=== PATIENT | male | born 1995 | race Caucasian/White ===

== ENCOUNTER 2021-10-01 05:07 | Emergency (ER) | payer MEDICAID ==
[~2021-10-01] VITALS: Ht 188 cm; Wt 79.5 kg
[~2021-10-01 05:07] MED LIST: DIPH-423 PO; FLUT16SP2; NO HOME MEDS
[2021-10-01 05:48] LABS: BASOPHILS % (AUTO) 0.2 % (0-1); EOSINOPHILS # (AUTO) 0.1 X10'3 (0-0.9); EOSINOPHILS % (AUTO) 1.1 % (0-6); HEMATOCRIT 46.2 % (42.0-52.0); HEMOGLOBIN 15.7 g/dl (14.0-17.9); LYMPHOCYTES # (AUTO) 1.9 X10'3 (1.1-4.8); LYMPHOCYTES % (AUTO) 21.8 % (21-51); MEAN CORPUSCULAR HEMOGLOBIN 29.7 PG (27.0-31.0); MEAN CORPUSCULAR VOLUME 87.3 FL (78-98); MONOCYTES # (AUTO) 0.7 X10'3 (0-0.9); MONOCYTES % (AUTO) 7.7 % (2-12); NEUTROPHILS # (AUTO) 5.9 X10'3 (1.8-7.7); NEUTROPHILS % (AUTO) 69.2 % (42-75); PLATELET COUNT 243 X10'3 (140-440); RED BLOOD COUNT 5.29 X10'6 (4.70-6.10); RED CELL DISTRIBUTION WIDTH 12.7 % (11.5-14.5); WHITE BLOOD COUNT 8.5 X10'3 (4.5-11.0)
[2021-10-01] MEDS ORDERED: NALO4SPR BOTHNARES (05:54)
[2021-10-01 06:00] LABS: ALANINE AMINOTRANSFERASE 71 U/L (12-78); ALBUMIN 3.7 G/DL (3.4-5.0); ALBUMIN/GLOBULIN RATIO 0.9 (1.1-1.5); ALKALINE PHOSPHATASE 85 IU/L (46-116); ANION GAP 11 (8-16); ASPARTATE AMINO TRANSFERASE 73 U/L (10-37); BILIRUBIN,TOTAL 1.1 MG/DL (0.1-1.0); BLOOD UREA NITROGEN 9 MG/DL (7-18); BUN/CREATININE RATIO 8.9 (5.4-32.0); CHLORIDE 99 MMOL/L (99-107); CREATININE 1.01 MG/DL (0.60-1.10); GLUCOSE 160 MG/DL (70-104); POTASSIUM 3.8 MMOL/L (3.5-5.1); SODIUM 137 MMOL/L (135-145); TOTAL CARBON DIOXIDE 27.3 MMOL/L (24-32); eGFR > 90 ML/MIN
[2021-10-01 06:07] LABS: MAGNESIUM 1.8 MG/DL (1.5-2.4)
--- NOTE | 2021-10-01 10:32 | NUR ---
Pt ambulating without difficulty and with steady gait.
[2021-10-01 11:20] VITALS: BP 125/102
== END 2021-10-01 11:24 | disposition home or self-care (01) ==
LOC: ER 05:07
DX: T40.411A Poisoning by fentanyl or fentanyl analogs, accidental (unintentional), initial encounter (principal); R41.82 Altered mental status, unspecified; Y92.89 Other specified places as the place of occurrence of the external cause; F15.10 Other stimulant abuse, uncomplicated; F19.10 Other psychoactive substance abuse, uncomplicated; Z79.899 Other long term (current) drug therapy
CPT/HCPCS: 36415; 71045; 80053; 83735; 83880; 84484; 85025; 93005; 99285

== ENCOUNTER 2021-10-15 16:34 | Emergency (ER) | payer MEDICAID ==
[~2021-10-15] VITALS: Ht 185.4 cm; Wt 79.5 kg
[~2021-10-15 16:34] MED LIST changes: +NALO4SPR BOTHNARES
[2021-10-15 16:53] VITALS: BP 139/87
[2021-10-15] MEDS ORDERED: PRED20TA PO (18:09)
[2021-10-15] MEDS ORDERED: ALBU6.7H9 INH (18:09)
[2021-10-15] MEDS ORDERED: SULF1TAB49 PO (18:09)
== END 2021-10-15 18:14 | disposition home or self-care (01) ==
LOC: ER 16:34
DX: R59.1 Generalized enlarged lymph nodes (principal); J45.909 Unspecified asthma, uncomplicated; F15.10 Other stimulant abuse, uncomplicated; F19.10 Other psychoactive substance abuse, uncomplicated; Z79.899 Other long term (current) drug therapy
CPT/HCPCS: 99283

== ENCOUNTER 2022-03-26 18:19 | Emergency (ER) | payer MEDICAID ==
[~2022-03-26] VITALS: Ht 185.4 cm; Wt 170.0 kg
[~2022-03-26 18:19] MED LIST changes: +ALBU6.7H14 INH
[2022-03-26 18:57] VITALS: BP 136/82
[2022-03-26 20:41] LABS: BASOPHILS % (AUTO) 0.4 % (0-1); EOSINOPHILS # (AUTO) 0.1 X10'3 (0-0.9); HEMATOCRIT 43.8 % (42.0-52.0); HEMOGLOBIN 15.1 g/dl (14.0-17.9); LYMPHOCYTES # (AUTO) 2.3 X10'3 (1.1-4.8); LYMPHOCYTES % (AUTO) 38.6 % (21-51); MEAN CORPUSCULAR HEMOGLOBIN 29.6 PG (27.0-31.0); MEAN CORPUSCULAR HGB CONC 34.4 g/dL (33.0-36.5); MEAN PLATELET VOLUME 8.1 FL (7.4-10.4); MONOCYTES # (AUTO) 0.4 X10'3 (0-0.9); MONOCYTES % (AUTO) 6.1 % (2-12); NEUTROPHILS # (AUTO) 3.2 X10'3 (1.8-7.7); NEUTROPHILS % (AUTO) 53.9 % (42-75); PLATELET COUNT 236 X10'3 (140-440); RED CELL DISTRIBUTION WIDTH 12.7 % (11.5-14.5)
[2022-03-26 21:09] LABS: ALANINE AMINOTRANSFERASE 23 U/L (12-78); ALBUMIN 3.9 G/DL (3.4-5.0); ALBUMIN/GLOBULIN RATIO 0.8 (1.1-1.5); ALKALINE PHOSPHATASE 80 IU/L (46-116); ANION GAP 6 (8-16); ASPARTATE AMINO TRANSFERASE 18 U/L (10-37); BILIRUBIN,TOTAL 0.3 MG/DL (0.1-1.0); BLOOD UREA NITROGEN 11 MG/DL (7-18); BUN/CREATININE RATIO 14.7 (5.4-32.0); CALCIUM 9.3 MG/DL (8.5-10.1); CHLORIDE 100 MMOL/L (99-107); CREATININE 0.75 MG/DL (0.60-1.10); GLUCOSE 69 MG/DL (70-104); MAGNESIUM 1.9 MG/DL (1.5-2.4); POTASSIUM 3.8 MMOL/L (3.5-5.1); SODIUM 138 MMOL/L (135-145); TOTAL CARBON DIOXIDE 32.1 MMOL/L (24-32); TOTAL PROTEIN 8.7 G/DL (6.4-8.2); eGFR > 90 ML/MIN
== END 2022-03-27 03:17 | disposition left against medical advice (07) ==
LOC: ER 18:21
DX: R60.0 Localized edema (principal); F19.10 Other psychoactive substance abuse, uncomplicated; M25.562 Pain in left knee; J45.909 Unspecified asthma, uncomplicated; F17.200 Nicotine dependence, unspecified, uncomplicated; F15.90 Other stimulant use, unspecified, uncomplicated; F11.90 Opioid use, unspecified, uncomplicated; Z79.899 Other long term (current) drug therapy
CPT/HCPCS: 36415; 71045; 80053; 83605; 83735; 84145; 85025; 87040; 99284

== ENCOUNTER → 2022-05-17 | Emergency (ER) | payer MEDICAID ==
[~2022-05-17] VITALS: Ht 185.4 cm; Wt 79.5 kg
[~2022-05-17] MED LIST changes: +ALBU8HFA PO
[2022-05-17 06:39] VITALS: BP 125/78
== END | disposition left against medical advice (07) ==
LOC: ER 06:09
DX: M54.9 Dorsalgia, unspecified (principal); Z53.21 Procedure and treatment not carried out due to patient leaving prior to being seen by health care provider

== ENCOUNTER 2022-05-20 09:47 | Emergency (ER) | payer MEDICAID ==
[~2022-05-20] VITALS: Ht 185.4 cm; Wt 79.5 kg
[~2022-05-20 09:47] MED LIST changes: -ALBU8HFA PO
[2022-05-20 10:52] VITALS: BP 119/73
[2022-05-20] MEDS ORDERED: ALBU8HFA PO (12:24)
== END 2022-05-20 12:49 | disposition home or self-care (01) ==
LOC: ER 09:48
DX: R05.9 Cough, unspecified (principal); J45.909 Unspecified asthma, uncomplicated; F15.10 Other stimulant abuse, uncomplicated
CPT/HCPCS: 99283

== ENCOUNTER 2022-07-18 20:56 | Emergency (ER) | payer MEDICAID ==
[~2022-07-18] VITALS: Ht 188 cm; Wt 79.5 kg
[2022-07-18 21:31] VITALS: BP 125/77
== END 2022-07-19 01:24 | disposition left against medical advice (07) ==
LOC: ER 20:57
DX: R22.43 Localized swelling, mass and lump, lower limb, bilateral (principal); L98.9 Disorder of the skin and subcutaneous tissue, unspecified; Z53.21 Procedure and treatment not carried out due to patient leaving prior to being seen by health care provider

== ENCOUNTER 2024-01-10 15:48 | Emergency (ER) | payer MEDICAID ==
[~2024-01-10] VITALS: Ht 188 cm; Wt 86.8 kg
[2024-01-10] MEDS ORDERED: BUSP15TA7 PO (17:20)
[2024-01-10] MEDS ORDERED: OLAN20TA3 PO (17:20)
[2024-01-10 17:58] VITALS: BP 127/77; PULSE 98; RESP 14; TEMP 98; O2SAT 98
== END 2024-01-10 18:00 | disposition home or self-care (01) ==
LOC: ER 15:48
DX: F41.9 Anxiety disorder, unspecified (principal); J45.909 Unspecified asthma, uncomplicated; F15.90 Other stimulant use, unspecified, uncomplicated; Z79.899 Other long term (current) drug therapy
CPT/HCPCS: 99281; 99283

== ENCOUNTER 2024-01-30 13:05 | Emergency (ER) | payer MEDICAID ==
[~2024-01-30] VITALS: Ht 188 cm; Wt 84.5 kg
[~2024-01-30 13:05] MED LIST changes: +BUSP15TA7 PO; +OLAN20TA3 PO
[2024-01-30] MEDS ORDERED: LORazepam 2 mg/ml vial IV PRN (14:25)
[2024-01-30] MEDS: normal saline 1000ml 1,000 ML IV ONE (14:59)
[2024-01-30] MEDS: thiamine 100mg/ml 2ml inj. IV ONE (15:06)
[2024-01-30 15:27] LABS: MAGNESIUM 2.1 MG/DL (1.5-2.4)
[2024-01-30 15:45] LABS: ETHANOL < 10 MG/DL (<10)
[2024-01-30 18:02] LABS: INR 1.1 INR
[2024-01-30 18:04] LABS: ALANINE AMINOTRANSFERASE 33 U/L (12-78); ALBUMIN 3.9 G/DL (3.4-5.0); ALBUMIN/GLOBULIN RATIO 1.1 (1.1-1.5); ALKALINE PHOSPHATASE 58 IU/L (46-116); AMYLASE 17 U/L (25-115); ANION GAP 9 (8-16); ASPARTATE AMINO TRANSFERASE 23 U/L (10-37); BILIRUBIN,TOTAL 0.7 MG/DL (0.1-1.0); BLOOD UREA NITROGEN 14 MG/DL (7-18); BUN/CREATININE RATIO 17.9 (10.0-20.0); CALCIUM 9.3 MG/DL (8.5-10.1); CHLORIDE 105 MMOL/L (99-107); CREATININE 0.78 MG/DL (0.60-1.10); GLUCOSE 117 MG/DL (70-104); LIPASE 19 U/L (16-77); PHOSPHORUS 3.5 MG/DL (2.3-4.5); POTASSIUM 3.9 MMOL/L (3.5-5.1); SODIUM 141 MMOL/L (135-145); TOTAL CARBON DIOXIDE 27.1 MMOL/L (24-32); TOTAL PROTEIN 7.5 G/DL (6.4-8.2); eCRCL 167 ML/MIN; eGFR > 90 ML/MIN
[2024-01-30 18:06] LABS: BASOPHILS % (AUTO) 0.1 % (0-1); EOSINOPHILS % (AUTO) 0.4 % (0-6); HEMATOCRIT 41.5 % (42.0-52.0); LYMPHOCYTES # (AUTO) 2.1 X10'3 (1.1-4.8); MEAN CORPUSCULAR HEMOGLOBIN 29.5 PG (27.0-31.0); MEAN CORPUSCULAR HGB CONC 33.7 g/dL (33.0-36.5); MEAN CORPUSCULAR VOLUME 87.5 FL (78-98); MONOCYTES # (AUTO) 0.5 X10'3 (0-0.9); NEUTROPHILS # (AUTO) 4.5 X10'3 (1.8-7.7); NEUTROPHILS % (AUTO) 62.5 % (42-75); PLATELET COUNT 232 X10'3 (140-440); RED BLOOD COUNT 4.74 X10'6 (4.70-6.10); RED CELL DISTRIBUTION WIDTH 13.7 % (11.5-14.5); WHITE BLOOD COUNT 7.1 X10'3 (4.5-11.0)
[2024-01-30 18:08] LABS: PROTHROMBIN TIME 11.4 SECONDS (9.0-12.0)
[2024-01-30] MEDS ORDERED: METHADONE HCL 10MG/1 ML 1mL ORAL SYRINGE PO STA (19:42)
[2024-01-30] MEDS: methadone 10mg tablet PO ONE (20:05)
[2024-01-30 20:09] VITALS: BP 118/84; PULSE 87; RESP 20; TEMP 98.7; O2SAT 98
== END 2024-01-30 20:14 | disposition home or self-care (01) ==
LOC: ER 13:05
DX: F19.10 Other psychoactive substance abuse, uncomplicated (principal); F15.90 Other stimulant use, unspecified, uncomplicated; J45.909 Unspecified asthma, uncomplicated; R79.1 Abnormal coagulation profile; Z79.899 Other long term (current) drug therapy
CPT/HCPCS: 36415; 80053; 80320; 82150; 83690; 83735; 84100; 85025; 85610; 96361; 96374; 99285; J3411; J7030

== ENCOUNTER 2024-02-01 11:56 | Emergency (ER) | payer MEDICAID | END 2024-02-01 12:10 | disposition left against medical advice (07) | LOC: ER 11:56 | DX: Z02.89 Encounter for other administrative examinations (principal); Z53.21 Procedure and treatment not carried out due to patient leaving prior to being seen by health care provider ==

== ENCOUNTER 2024-03-11 16:51 | Emergency (ER) | payer MEDICAID ==
[~2024-03-11] VITALS: Ht 188 cm; Wt 86.4 kg
[2024-03-11 17:05] VITALS: TEMP 98
[2024-03-11] MEDS ORDERED: AMOX-580 PO (18:20)
[2024-03-11] MEDS ORDERED: MELO-100 PO (18:20)
[2024-03-11 18:51] VITALS: BP 158/92; PULSE 98; RESP 17; O2SAT 99
== END 2024-03-11 18:52 | disposition home or self-care (01) ==
LOC: ER 16:52
DX: K04.7 Periapical abscess without sinus (principal); K02.9 Dental caries, unspecified; K08.89 Other specified disorders of teeth and supporting structures; J45.909 Unspecified asthma, uncomplicated; F15.90 Other stimulant use, unspecified, uncomplicated; Z79.899 Other long term (current) drug therapy
CPT/HCPCS: 99283

== ENCOUNTER 2024-06-26 12:02 | Emergency (ER) | payer MEDICAID ==
[~2024-06-26 12:02] MED LIST changes: +MELO-100 PO
[2024-06-27] MEDS ORDERED: AMOX-580 PO (06:51)
== END 2024-06-26 13:17 | disposition left against medical advice (07) ==
LOC: ER 12:04
DX: L02.91 Cutaneous abscess, unspecified (principal); Z53.21 Procedure and treatment not carried out due to patient leaving prior to being seen by health care provider

== ENCOUNTER 2024-06-27 06:20 | Emergency (ER) | payer MEDICAID ==
[~2024-06-27] VITALS: Ht 185.4 cm; Wt 86.7 kg
[2024-06-27] MEDS ORDERED: AMOX-580 PO (06:51)
[2024-06-27] MEDS: PENICILLIN G BENZATHINE 2,400,000 UNIT/4 ML SYRINGE IM STA (07:01)
[2024-06-27] MEDS: amox tr/potassium clavulanate 875/125mg TAB PO ONE (07:05)
[2024-06-27] MEDS: dexamethasone 4mg tablet PO ONE (07:06)
[2024-06-27] MEDS: CefTRIAXone 1000mg IM Kit (w/lidocaine diluent) IM ONE (07:12)
[2024-06-27 07:20] VITALS: BP 114/68; PULSE 86; RESP 16; TEMP 98.3; O2SAT 99
== END 2024-06-27 07:22 | disposition home or self-care (01) ==
LOC: ER 06:20
DX: J36 Peritonsillar abscess (principal); J45.909 Unspecified asthma, uncomplicated; F17.200 Nicotine dependence, unspecified, uncomplicated; F12.90 Cannabis use, unspecified, uncomplicated; F15.90 Other stimulant use, unspecified, uncomplicated
CPT/HCPCS: 96372; 99283; J0696

== ENCOUNTER 2024-08-24 16:41 | Emergency (ER) | payer MEDICAID ==
[~2024-08-24] VITALS: Ht 188 cm; Wt 93.1 kg
[2024-08-24] MEDS ORDERED: AMOX-580 PO (17:09)
[2024-08-24] MEDS: HYDROcodone/acetaminophen 5mg/325mg tablet PO ONE (17:22)
[2024-08-24 17:24] VITALS: BP 126/76; PULSE 78; RESP 18; TEMP 98.7; O2SAT 98
== END 2024-08-24 17:25 | disposition home or self-care (01) ==
LOC: ER 16:41
DX: K04.7 Periapical abscess without sinus (principal); K02.9 Dental caries, unspecified; J45.909 Unspecified asthma, uncomplicated
CPT/HCPCS: 99283

== ENCOUNTER 2024-08-31 05:17 | Emergency (ER) | payer MEDICAID ==
[~2024-08-31] VITALS: Ht 188 cm; Wt 87.4 kg
[~2024-08-31 05:17] MED LIST changes: +AMOX-580 PO
[2024-08-31 05:23] VITALS: BP 145/98; PULSE 75; RESP 15; TEMP 96.8; O2SAT 99
[2024-08-31] MEDS ORDERED: AMOX-580 PO (05:44)
== END 2024-08-31 05:48 | disposition home or self-care (01) ==
LOC: ER 05:18
DX: K08.89 Other specified disorders of teeth and supporting structures (principal); J45.909 Unspecified asthma, uncomplicated; F15.90 Other stimulant use, unspecified, uncomplicated; F11.90 Opioid use, unspecified, uncomplicated; F19.90 Other psychoactive substance use, unspecified, uncomplicated; Z79.899 Other long term (current) drug therapy
CPT/HCPCS: 99284